=== PATIENT | female | born 1970 | race Caucasian/White ===

== ENCOUNTER 2024-11-11 11:28 | Outpatient (CLI) | payer OTHER, SELFPAY ==
--- NOTE | ~2024-11-11 | XR_ITS ---
[id number] Ordering provider: Luna Pacheco DC History: . Radiculopathy, cervicothoracic region . Comparison: None. FINDINGS: VERTEBRAL BODIES: Normal height and alignment. No visible fracture or subluxation. The dens is intact . Mild degenerative changes of the spine. DISK SPACES: Well maintained. 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 Uncovertebral joint osteoarthritic changes at the level of C5/C6. PARASPINOUS SOFT TISSUES: No prevertebral soft tissue swelling. IMPRESSION: No acute osseous abnormality cervical spine. Reviewed, dictated and finalized at location A.
--- NOTE | ~2024-11-11 | XR_ITS ---
3 VIEWS LUMBAR SPINE Ordering provider: Luna Pacheco DC History: . Lumbago with sciatica, left side . Comparison: None. FINDINGS: VERTEBRAL BODIES: No visible fracture or subluxation. Mild levoscoliosis. Degenerative changes of the spine. Possible spondylolysis at the level of L5-S1. DISK SPACES: Normal. SOFT TISSUES: Normal. IMPRESSION: No acute osseous abnormality lumbar spine. Degenerative changes of the spine. Possible spondylolysis at the level of L5-S1. Reviewed, dictated and finalized at location A.
== END 2024-11-11 11:29 | disposition home or self-care (01) ==
DX: M51.360 Other intervertebral disc degeneration, lumbar region with discogenic back pain only (principal); M54.13 Radiculopathy, cervicothoracic region
CPT/HCPCS: 72040; 72100